=== PATIENT | male | born 1965 | race Caucasian/White ===

== ENCOUNTER 2017-11-12 09:01 | Emergency (ER) | payer MEDICAID ==
[~2017-11-12] VITALS: Ht 160 cm; Wt 68.0 kg
[2017-11-12] MEDS ORDERED: IBUPROFEN 600 MG TABLET PO ONE (10:15)
[2017-11-12 12:16] VITALS: BP 131/82
== END 2017-11-12 12:17 | disposition home or self-care (01) ==
LOC: EMS 09:07
DX: S80.01XA Contusion of right knee, initial encounter (principal); V03.90XA Pedestrian on foot injured in collision with car, pick-up truck or van, unspecified whether traffic or nontraffic accident, initial encounter; Y93.89 Activity, other specified; Y92.89 Other specified places as the place of occurrence of the external cause; Y99.8 Other external cause status
CPT/HCPCS: 29505; 99284

== ENCOUNTER 2019-10-15 12:24 | Emergency (ER) | payer MEDICAID ==
[~2019-10-15] VITALS: Ht 160 cm; Wt 81.0 kg
[2019-10-15 14:45] VITALS: BP 141/86
== END 2019-10-15 14:49 | disposition home or self-care (01) ==
LOC: EMS 12:26
DX: L73.9 Follicular disorder, unspecified (principal); R03.0 Elevated blood-pressure reading, without diagnosis of hypertension

== ENCOUNTER 2019-11-18 09:18 | Emergency (ER) | payer MEDICAID ==
[~2019-11-18] VITALS: Ht 160 cm; Wt 81.8 kg
[2019-11-18 11:32] VITALS: BP 124/79
== END 2019-11-18 11:38 | disposition home or self-care (01) ==
LOC: EMS 09:19
DX: L73.9 Follicular disorder, unspecified (principal)

== ENCOUNTER 2019-11-25 16:47 | Emergency (ER) | payer MEDICAID ==
[~2019-11-25] VITALS: Ht 160 cm; Wt 81.8 kg
[2019-11-25 18:00] VITALS: BP 117/74
== END 2019-11-25 18:20 | disposition home or self-care (01) ==
LOC: EMS 16:47
DX: L73.9 Follicular disorder, unspecified (principal)

== ENCOUNTER 2019-12-08 14:41 | Emergency (ER) | payer MEDICAID ==
[~2019-12-08] VITALS: Ht 160 cm; Wt 81.8 kg
[2019-12-08 16:10] VITALS: BP 126/76
== END 2019-12-08 16:30 | disposition home or self-care (01) ==
LOC: EMS 14:44
DX: L73.9 Follicular disorder, unspecified (principal)

== ENCOUNTER 2020-02-24 20:42 | Emergency (ER) | payer MEDICAID ==
[~2020-02-24] VITALS: Ht 160 cm; Wt 81.8 kg
[2020-02-24] MEDS ORDERED: IBUPROFEN 600 MG TABLET PO ONE (22:45)
[2020-02-24] MEDS ORDERED: ACETAMINOPHEN 500 MG TABLET PO ONE (22:45)
[2020-02-25 00:40] VITALS: BP 105/72
== END 2020-02-25 01:22 | disposition home or self-care (01) ==
LOC: EMS 20:42
DX: S00.03XA Contusion of scalp, initial encounter (principal); Z59.0 Homelessness; Y04.0XXA Assault by unarmed brawl or fight, initial encounter; Y93.89 Activity, other specified; Y92.89 Other specified places as the place of occurrence of the external cause; Y99.8 Other external cause status
CPT/HCPCS: 70450

== ENCOUNTER 2022-12-29 18:52 | Emergency (ER) | payer MEDICAID, OTHER ==
[~2022-12-29] VITALS: Ht 154.9 cm; Wt 65.9 kg
[2022-12-29 19:07] VITALS: BP 157/80; PULSE 96; RESP 16; TEMP 98.3
[2022-12-29] MEDS ORDERED: DIPH25CA85 PO (19:09)
[2022-12-29] MEDS ORDERED: IBUP-1492 PO (19:09)
== END 2022-12-29 19:24 | disposition home or self-care (01) ==
LOC: EMS 18:52
DX: R51.9 Headache, unspecified (principal); G47.00 Insomnia, unspecified; Z59.00 Homelessness unspecified; Z98.890 Other specified postprocedural states
CPT/HCPCS: 99282; Z7502